=== PATIENT | female | born 1990 | race Caucasian/White ===

== ENCOUNTER 2017-02-05 12:33 | Inpatient (IN) | payer MEDICAID ==
[~2017-02-05] VITALS: Ht 175.3 cm; Wt 113.6 kg
[2017-02-05 12:56] VITALS: Ht 175.3 cm; Wt 113.6 kg
[2017-02-05 12:58] VITALS: BP 129/77; PULSE 64; RESP 20
[2017-02-05] MEDS ORDERED: PRENAT PO (13:04)
[2017-02-05] MEDS: LACTATED RINGER'S 1,000 ML IV SCH ×3 (13:28→23:44)
[2017-02-05] MEDS ORDERED: METHYLERGONOVINE 0.2 MG INJ IM PRN (13:30)
[2017-02-05] MEDS ORDERED: CEFAZOLIN 2 GM/50 ML (PMX) 50 ML IV SCH (13:30)
[2017-02-05] MEDS ORDERED: OXYTOCIN 30 UNITS/LR 500 ML IV PRN (13:30)
[2017-02-05] MEDS ORDERED: CARBOPROST 250 MCG INJ IM PRN (13:30)
[2017-02-05] MEDS ORDERED: MISOPROSTOL 200 MCG TAB PR PRN (13:30)
[2017-02-05] MEDS ORDERED: OXYTOCIN 30 UNITS/LR 500 ML IV SCH (13:30)
[2017-02-05 13:58] LABS: BASOPHILS % 0.1 % (0.0-2.0); EOSINOPHILS % 0.5 % (0.0-7.0); HEMATOCRIT 35.2 % (37.0-47.0); HEMOGLOBIN 11.9 g/dl (12.0-16.0); LYMPHOCYTES # 1.6 10^3/ul (0.8-2.9); LYMPHOCYTES % 18.4 % (15.0-51.0); MEAN CORPUSCULAR HEMOGLOBIN 26.6 pg (29.0-33.0); MEAN CORPUSCULAR HGB CONC 33.8 g/dl (32.0-37.0); MEAN CORPUSCULAR VOLUME 78.6 fl (82.0-101.0); MEAN PLATELET VOLUME 10.8 fl (7.4-10.4); MONOCYTE # 0.7 10^3/ul (0.3-0.9); NEUTROPHILS % 72.7 % (39.0-77.0); PLATELET COUNT 230 10^3/UL (140-415); RED BLOOD COUNT 4.48 10^6/ul (4.20-5.40); RED CELL DISTRIBUTION WIDTH 13.3 % (11.5-14.5); WHITE BLOOD COUNT 8.8 10^3/ul (4.8-10.8)
[2017-02-05] MEDS ORDERED: LACTATED RINGER'S 1,000 ML IV PRN (14:00)
[2017-02-05 14:01] LABS: INR 0.88; PROTIME 11.9 Sec (12.2-14.2); PT RATIO 0.9
[2017-02-05 14:02] LABS: PARTIAL THROMBOPLASTIN TIME 26.9 Sec (25.0-35.0)
[2017-02-05 14:03] LABS: ALBUMIN 3.1 g/dl (3.3-4.9); ALBUMIN/GLOBULIN RATIO 0.88; BILIRUBIN,INDIRECT 0.1 mg/dl (0-1.1); BILIRUBIN,TOTAL 0.1 mg/dl (0.2-1.3); CALCIUM 8.8 mg/dl (8.4-10.2); CREATININE 0.6 mg/dl (0.44-1.00); POTASSIUM 3.7 mmol/L (3.5-5.1); TOTAL PROTEIN 6.6 g/dl (6.1-8.1)
[2017-02-05 14:04] LABS: ALBUMIN 3.1 g/dl (3.3-4.9); BILIRUBIN,INDIRECT 0.1 mg/dl (0-1.1); BILIRUBIN,TOTAL 0.1 mg/dl (0.2-1.3); TOTAL PROTEIN 6.5 g/dl (6.1-8.1); URIC ACID 5.4 mg/dl (3.1-7.9)
[2017-02-05] MEDS ORDERED: LACTATED RINGER'S 1,000 ML IV ONE (15:18)
[2017-02-05] MEDS ORDERED: CITRIC ACID/NA CITRATE 30 ML CUP PO ONE (15:30)
[2017-02-05] MEDS ORDERED: ONDANSETRON 4 MG INJ IV ONE (15:30)
[2017-02-05 17:26] LABS: ADD UMIC YES; UR ASCORBIC ACID 40 mg/dL (NEGATIVE); UR BACTERIA FEW /HPF (NONE SEEN); UR BILIRUBIN (Dip) NEGATIVE (NEGATIVE); UR BLOOD (Dip) NEGATIVE (NEGATIVE); UR CLARITY SLIGHTLY CLOUDY (CLEAR); UR COLOR YELLOW (YELLOW); UR GLUCOSE (Dip) NEGATIVE (NEGATIVE); UR KETONES (Dip) 2+ mg/dL (NEGATIVE); UR LEUKOCYTE ESTERASE (Dip) NEGATIVE Leu/ul (NEGATIVE); UR NITRITE (Dip) NEGATIVE (NEGATIVE); UR RBC 1 /HPF (0-5); UR SPECIFIC GRAVITY (Dip) 1.024 (1.003-1.030); UR TOTAL PROTEIN (Dip) 2+ mg/dl (NEGATIVE); UR UROBILINOGEN (Dip) NEGATIVE (NEGATIVE)
[2017-02-05] MEDS ORDERED: FENTAnyl 50 MCG/ML VIAL ONE (20:02)
[2017-02-05] MEDS ORDERED: morphine SULFATE/PF (10 MG/10 ML) INJ ONE (20:03)
--- NOTE | 2017-02-05 20:08 | HP ---
Date/Time of Note Date/Time of Note DATE: 02/05/17 TIME: 20:07 OB - History Hx of Present Free Text/Dictation AT TERM PREG. WITH HIGH BP IN CLINIC FOR REPEAT C/S Care: Good Care Ultrasounds: Normal mid trimester US Obstetrical Complications: None Medical Complications: None Past Family/Social History * Past Medical, Surgical, Family and Obstetric Histories reviewed from chart. OB Admission Exam Vital Signs Vital Signs Vital Signs Date Time Temp Pulse Resp B/P Pulse Ox O2 Delivery O2 Flow Rate FiO2 02/05/17 12:58 98.3 64 20 129/77 97 Room Air Physical Exam HEENT: WNL Heart: Rhythm Normal Lungs: Clear, Equal Abdomen: WNL Extremities: Normal Reflexes: Normal Intensity: Moderate Last 72 hours Lab Results CBC & BMP 02/05/17 13:28 Liver Function Test 02/05/17 13:28 Alanine Aminotransferase (ALT/SGPT) 34 Albumin 3.1 L Alkaline Phosphatase 160 H Aspartate Amino Transf (AST/SGOT) 31 Direct Bilirubin 0.00 Total Protein 6.5 OB Assessment/Plan Reason for admission: section Plan: Section ZANE CRAWFORD MD Feb 05, 2017 20:08
[2017-02-05] MEDS ORDERED: OXYTOCIN 30 UNITS/LR 500 ML IV ONE (20:20)
[2017-02-05] MEDS ORDERED: METOCLOPRAMIDE 10 MG INJ ONE (20:20)
--- NOTE | 2017-02-05 21:04 | OPR ---
Operative Report Planned Procedure Free Text/Dictation term preg repeat c/s Procedure date Feb 05, 2017 Performed by: ZANE CRAWFORD MD Assisting provider: TUCKER REYNAGA MD Anesthesia Type: spinal Procedure Description Under satisfactory [spinal ] anesthesia, the patient was prepped and draped and placed in a supine position, tilted to the left. Pfannenstiel incision was made , carried through the subcutaneous tissue. Bleeders brought under control with electrocautery. Fascia incised to the length of the incision. Rectus muscles from the fascia, divided midline. Peritoneum exposed, entered through a transverse incision. Exploration of abdomen revealed gravid uterus. Bladder flap was developed. Transverse incision was made in the lower segment of the uterus. Amniotic sac ruptured. [] clear amniotic fluid noted. [] Nasal oropharyngeal suction was performed. The baby was handed to the team for immediate attention. The placenta was delivered manually intact. Uterine cavity was cleaned with wet sponge and drainage established. Uterus closed in 2 layers using [one monocryl] in continuous fashion. Peritoneal cavity irrigated with warm saline. Sponge, needle and instrument count reported to be correct. Abdominal peritoneum closed with [one monocryl] continuously. Rectus muscle approximated with []. Fascia closed with [one monocryl], and skin closed with speedy. Estimated blood loss 700[]mL. Post-Procedure Findings: Live Baby [], Apgars [] and [], weight [], position [], [] presentation []cord. Specimen removed: Yes Specimen description placenta Pt Condition post procedure: stable Physician Certification I, the undersigned physician, hereby certify that I have discussed the procedure described in this consent form with this patient (or the patient's legal payable representative), including: * The risk and benefits of the procedure; * Any adverse reactions that may reasonably be expected to occur; * Any alternative efficacious methods of treatment which may be medically viable ; * The potential problems that may occur during recuperation; * Potential for blood transfusion and associated risks/benefits; and * Any research or economic interest I may have regarding this treatment. I further certify that the patient/legally responsible person was encouraged to ask question and that all questions were answered. ZANE CRAWFORD MD Feb 05, 2017 21:04
[2017-02-05] MEDS ORDERED: TRIMETHOBENZAMIDE 100 MG/ML VIAL IM PRN (21:30)
[2017-02-05] MEDS ORDERED: HYDROmorphONE 1 MG/ML SYG IV PRN ×2 (21:30)
[2017-02-05] MEDS ORDERED: NALOXONE (0.4 MG/ML) INJ IV PRN (21:30)
[2017-02-05] MEDS ORDERED: ONDANSETRON 4 MG INJ IV PRN (21:30)
[2017-02-05] MEDS ORDERED: NALBUPHINE HCL (10 MG/1 ML) INJ IV PRN (21:30)
[2017-02-05] MEDS ORDERED: DIPHENHYDRAMINE 50 MG INJ IV PRN (21:30)
[2017-02-05] MEDS: KETOROLAC 30 MG INJ IV PRN (22:41)
[2017-02-06] MEDS: OXYTOCIN 30 UNITS/LR 500 ML IV SCH ×2 (00:21→04:21)
[2017-02-06] MEDS: LACTATED RINGER'S 1,000 ML IV SCH ×4 (00:21→23:47)
[2017-02-06 00:30] VITALS: BP 135/79; PULSE 62; RESP 18
[2017-02-06] MEDS ORDERED: NA PHOSPHATE/BIPHOS 133 ML ENEMA PR PRN (00:30)
[2017-02-06] MEDS ORDERED: CARBOPROST 250 MCG INJ IM PRN (00:30)
[2017-02-06] MEDS ORDERED: MISOPROSTOL 200 MCG TAB PR PRN (00:30)
[2017-02-06] MEDS ORDERED: OXYTOCIN 30 UNITS/LR 500 ML IV PRN (00:30)
[2017-02-06] MEDS ORDERED: LANOLIN 7 GM TUBE TOP PRN (00:30)
[2017-02-06] MEDS ORDERED: METHYLERGONOVINE 0.2 MG INJ IM PRN (00:30)
[2017-02-06] MEDS ORDERED: NACL 0.9% 3 ML SYG IV SCH (00:30)
[2017-02-06 04:00] VITALS: BP 132/79; RESP 18
[2017-02-06 08:00] VITALS: BP 130/79; RESP 18
[2017-02-06 10:46] LABS: BASOPHILS % 0.1 % (0.0-2.0); EOSINOPHILS % 0.3 % (0.0-7.0); HEMATOCRIT 30.7 % (37.0-47.0); HEMOGLOBIN 10.2 g/dl (12.0-16.0); LYMPHOCYTES # 1.2 10^3/ul (0.8-2.9); LYMPHOCYTES % 11.4 % (15.0-51.0); MEAN CORPUSCULAR HEMOGLOBIN 26.4 pg (29.0-33.0); MEAN CORPUSCULAR HGB CONC 33.2 g/dl (32.0-37.0); MEAN CORPUSCULAR VOLUME 79.3 fl (82.0-101.0); MEAN PLATELET VOLUME 10.8 fl (7.4-10.4); MONOCYTE # 0.6 10^3/ul (0.3-0.9); MONOCYTES % 5.7 % (0.0-11.0); NEUTROPHILS % 82.1 % (39.0-77.0); PLATELET COUNT 187 10^3/UL (140-415); RED BLOOD COUNT 3.87 10^6/ul (4.20-5.40); RED CELL DISTRIBUTION WIDTH 13.4 % (11.5-14.5); WHITE BLOOD COUNT 10.3 10^3/ul (4.8-10.8)
[2017-02-06 16:25] VITALS: BP 132/87; PULSE 69
--- NOTE | 2017-02-06 17:29 | QN ---
Documentation Comment doing well vss abd soft d/c IV ZANE CRAWFORD MD Feb 06, 2017 17:29
[2017-02-06] MEDS: KETOROLAC 30 MG INJ IV PRN (17:30)
[2017-02-06 20:00] VITALS: BP 128/80; PULSE 66; RESP 17
[2017-02-06] MEDS ORDERED: OXYCODONE/ACETAMINOPHEN (5/325) TAB PO PRN (20:12)
[2017-02-06] MEDS ORDERED: HYDROCODONE/APAP (5/325) TAB PO PRN (20:12)
[2017-02-06] MEDS: IBUPROFEN 800 MG TAB PO SCH (22:30)
[2017-02-07 04:00] VITALS: BP 122/67; PULSE 61; RESP 18
[2017-02-07] MEDS: IBUPROFEN 800 MG TAB PO SCH ×3 (05:28→22:14)
[2017-02-07] MEDS: LACTATED RINGER'S 1,000 ML IV SCH ×2 (06:23→16:20)
[2017-02-07 08:15] VITALS: BP 121/69; PULSE 63; RESP 18
[2017-02-07 16:30] VITALS: BP 129/62; PULSE 82; RESP 18
[2017-02-07 20:30] VITALS: BP 135/90; PULSE 77; RESP 18
--- NOTE | 2017-02-07 23:36 | QN ---
Documentation Comment DOING WELL VSS ABD SOFT D/C IV ZANE CRAWFORD MD Feb 07, 2017 23:36
--- NOTE | 2017-02-07 23:38 | DS ---
Date/Time of Note Date/Time of Note DATE: 02/07/17 TIME: 23:37 Discharge Summary Admission/Discharge Info Admit Date/Time Feb 05, 2017 at 12:33 Discharge Date/Time Discharge Diagnosis TERM Patient Condition: Good Hospital Course UNREMARKABLE Home Meds Reported Medications Multivit/Min/Fol Ac/Iron/Pren* ( S*) 1 Tab Tab, 1 TAB PO DAILY, TAB 02/05/17 Primary Care Provider Care Physician No Primary ZANE CRAWFORD MD Feb 07, 2017 23:38
[2017-02-08 04:00] VITALS: BP 118/62; PULSE 81; RESP 17
[2017-02-08] MEDS: IBUPROFEN 800 MG TAB PO SCH ×2 (05:45→13:52)
[2017-02-08 09:00] VITALS: BP 125/84; PULSE 66; RESP 18
[2017-02-08] MEDS ORDERED: MEASLES,MUMPS,RUBELLA VACCINE INJ SC* ONE (09:00)
[2017-02-08] MEDS ORDERED: DIPHTH/TET/ACEL PERTUSS (ADULT) 0.5 ML VIAL IM* ONE (09:00)
== END 2017-02-08 15:20 | disposition home or self-care (01) | DRG 766 ==
LOC: L-D 12:33 → PP1 23:53
PROVIDERS: ADMIT Obstetrics & Gynecology; ATTEND Obstetrics & Gynecology
PROC: 3E033VJ Introduction of Other Hormone into Peripheral Vein, Percutaneous Approach (ICD-10-PCS; 2017-02-05)
PROC: 10D00Z1 Extraction of Products of Conception, Low, Open Approach (ICD-10-PCS; principal; 2017-02-05 20:30)
DX: O34.211 Maternal care for low transverse scar from previous cesarean delivery (principal); E66.01 Morbid (severe) obesity due to excess calories; O99.214 Obesity complicating childbirth; Z68.37 Body mass index [BMI] 37.0-37.9, adult; Z3A.38 38 weeks gestation of pregnancy; Z37.0 Single live birth
CPT/HCPCS: 80053; 80076; 81001; 84560; 85025; 85610; 85730; 86592; 86850; 86900; 86901; 87340; 90715; 94760; 99464; J0690; J1885; J2274; J2405; J2590; J2765; J3010; J7120